=== PATIENT | male | born 1960 | race Caucasian/White ===

== ENCOUNTER 2023-03-24 08:32 | Observation (INO) | payer OTHER ==
[2023-03-21 09:15] VITALS: BMI 36.9
[~2023-03-24 08:32] MED LIST: Dexmedetomidine 200 MCG/2 ML VIAL ONE; Lidocaine 4% Topical Sol 50 ML BOT ONE; Oxymetazoline HCl 0.05% ( 15 ML ) ONE; SUGAMMADEX SODIUM 200 MG/2 ML VIAL ONE
[2023-03-24] MEDS ORDERED: Oxymetazoline HCl 0.05% ( 15 ML ) ONE ×2 (09:39→13:12)
[2023-03-24 10:21] LABS: #Basophils 0.1 10x3/uL (0.0-0.2); #Eosinphils 0.4 10x3/uL (0.0-0.5); #Monocytes 1.1 10x3/uL (0.0-1.1); #Neutrophils 7.4 10x3/uL (1.5-8.4); %Basophils 0.6 % (0.0-2.0); %Lymphocytes 23.6 % (18.0-47.0); %Monocytes 9.3 % (0.0-10.0); Hematocrit 48.6 % (38.8-50.0); Hemoglobin 16.7 g/dL (13.5-17.5); Mean Corpuscular HGB CONC 34.4 g/dL (32.0-36.0); Mean Corpuscular Hemoglobin 30.1 pg (27.0-33.0); Mean Corpuscular Volume 87.6 fl (81.2-95.1); Mean Platelet Volume 9.3 fl (7.4-10.4); Platelet Count 241 10x3/uL (150-450); RBC Distribution Width 13.2 % (11.5-14.5); Red Blood Cell (RBC) Count 5.55 10x6/uL (4.32-5.72); White Blood Cell (WBC) Count 11.8 10x3/uL (3.5-10.5)
[2023-03-24 10:43] LABS: Anion Gap 15 mmol/L (10-20); BUN (Urea Nitrogen) 26 mg/dL (8.4-25.7); Calc. Creatinine Clearance 136 mL/min (70-130); Calcium 8.7 mg/dL (7.8-10.44); Carbon Dioxide 24 mmol/L (23-31); Chloride 104 mmol/L (98-107); Estimated GFR 97; Glucose 102 mg/dL (80-115); Potassium 3.6 mmol/L (3.5-5.1); Sodium 139 mmol/L (136-145)
[2023-03-24] MEDS ORDERED: PROPOFOL 20 ML ONE (12:36)
[2023-03-24] MEDS ORDERED: PROPOFOL 0 ML ONE (12:36)
[2023-03-24] MEDS ORDERED: Fentanyl 250 MCG/5 ML VIAL ONE (12:36)
[2023-03-24] MEDS ORDERED: Ondansetron PF 4 MG/2 ML Vial ONE (12:37)
[2023-03-24] MEDS ORDERED: Dexamethasone 20 MG/5 ML VIAL ONE (12:37)
[2023-03-24] MEDS ORDERED: Midazolam HCl 2 mg/2 ml Vial ONE (12:37)
[2023-03-24] MEDS ORDERED: Rocuronium Bromide 10 MG/ML (10ML VIAL) ONE (12:37)
[2023-03-24] MEDS ORDERED: Glycopyrrolate 0.2 MG/ML 5 ML SYRINGE ONE ×2 (12:37→14:02)
[2023-03-24] MEDS ORDERED: EPINEPHrine 1 MG/ML AMP ONE (13:12)
[2023-03-24] MEDS ORDERED: CEFAZOLIN 2 GM VIAL ONE (13:13)
[2023-03-24] MEDS ORDERED: Mupirocin 2% Ointment 22 GM Tube ONE (13:13)
[2023-03-24] MEDS ORDERED: Acetaminophen 325 MG TAB PO PRN (13:22)
[2023-03-24] MEDS ORDERED: Ondansetron PF 4 MG/2 ML Vial IVP PRN (13:22)
[2023-03-24] MEDS ORDERED: HYDROcodone/Acetaminophen 7.5/325 mg Tablet PO PRN (13:22)
[2023-03-24] MEDS ORDERED: ePHEDrine Sulfate 50 MG/10 ML VIAL ONE (13:32)
[2023-03-24] MEDS ORDERED: PHENYLEPHRINE-NS 100 MCG/ML 10 ML SYRINGE ONE (13:34)
[2023-03-24] MEDS ORDERED: Lidocaine 1% w/Epinephrine 1:100K 20 ML VIAL ONE (13:46)
[2023-03-24] MEDS ORDERED: Vasopressin 20 UNITS/ML VIAL ONE (14:23)
[2023-03-24] MEDS: Lisinopril 20 MG TAB PO SCH (20:59)
[2023-03-24] MEDS ORDERED: Amlodipine 5 MG TAB PO SCH (21:00)
[2023-03-24] MEDS: HYDROcodone/Acetaminophen 5/325 mg Tablet PO PRN (22:46)
[2023-03-25] MEDS ORDERED: Dexamethasone 20 MG in Sodium Chloride 0.9% 50 ML IVPB SCH (06:00)
[2023-03-25] MEDS: Lisinopril 20 MG TAB PO SCH (08:15)
[2023-03-25] MEDS: Hydrochlorothiazide 25 MG TAB PO SCH (08:15)
[2023-03-25] MEDS: HYDROcodone/Acetaminophen 5/325 mg Tablet PO PRN (08:17)
[2023-03-25 12:45] VITALS: BP 122/76; TEMP 97.8
== END 2023-03-25 15:30 | disposition home or self-care (01) ==
LOC: CSHSDC 08:32 → CSHTELE 18:04
PROVIDERS: ADMIT Otolaryngology Plastic Surgery within the Head & Neck; ATTEND Otolaryngology Plastic Surgery within the Head & Neck
PROC: 095L0ZZ Destruction of Nasal Turbinate, Open Approach (ICD-10-PCS; principal; 2023-03-24)
PROC: 09BV8ZZ Excision of Left Ethmoid Sinus, Via Natural or Artificial Opening Endoscopic (ICD-10-PCS; 2023-03-24)
PROC: 09BU8ZZ Excision of Right Ethmoid Sinus, Via Natural or Artificial Opening Endoscopic (ICD-10-PCS; 2023-03-24)
PROC: 099R8ZZ Drainage of Left Maxillary Sinus, Via Natural or Artificial Opening Endoscopic (ICD-10-PCS; 2023-03-24)
PROC: 099Q8ZZ Drainage of Right Maxillary Sinus, Via Natural or Artificial Opening Endoscopic (ICD-10-PCS; 2023-03-24)
DX: J34.3 Hypertrophy of nasal turbinates (principal); J34.2 Deviated nasal septum; J32.4 Chronic pansinusitis; J33.9 Nasal polyp, unspecified; I10 Essential (primary) hypertension; G47.30 Sleep apnea, unspecified; H61.23 Impacted cerumen, bilateral; Z79.82 Long term (current) use of aspirin; Z79.899 Other long term (current) drug therapy; Z88.8 Allergy status to other drugs, medicaments and biological substances
CPT/HCPCS: 36415; 80048; 85025; 88305; 88311; 94640; 94762; J0171; J1100; J2250; J2405; J2704; J3010